=== PATIENT | female | born 1960 | race Caucasian/White ===

== ENCOUNTER 2021-12-06 14:52 | Outpatient (CLI) | payer BC | END 2021-12-06 14:53 | disposition home or self-care (01) | LOC: CSHMRI 14:52 | PROVIDERS: ATTEND Family Medicine | DX: I82.729 Chronic embolism and thrombosis of deep veins of unspecified upper extremity (principal); G43.B0 Ophthalmoplegic migraine, not intractable; R68.89 Other general symptoms and signs | CPT/HCPCS: 70544 ==